=== PATIENT | female | born 1975 ===

== ENCOUNTER 2017-01-15 19:29 | Emergency (ER) | payer MEDICAID ==
[2017-01-15] MEDS ORDERED: DIPHENHYDRAMINE HCL 25 MG CAPSULE PO ONE (20:49)
[2017-01-15] MEDS ORDERED: FAMOTIDINE 20 MG TABLET PO ONE (20:49)
[2017-01-15] MEDS ORDERED: PREDNISONE 20 MG TABLET PO ONE (20:49)
[2017-01-15 20:51] VITALS: BP 144/79
--- NOTE | 2017-01-15 21:02 | ER Document Report ---
ED Medical Screen (RME) - General Stated Complaint: POSSIBLE RASH Mode of Arrival: Ambulatory Information source: Patient Notes: 41 y/o F presents to ED c/o itchy rash that began this morning. States unknown cause. Rash is to bilateral upper and lower extremities and trunk. Denies fever , recent illness, difficulty breathing or swallowing. I have greeted and performed a rapid initial assessment of this patient. A comprehensive ED assessment and evaluation of the patient, analysis of test results and completion of the medical decision making process will be conducted by additional ED providers. TRAVEL OUTSIDE OF THE [place] IN LAST 30 DAYS: No - Related Data Allergies/Adverse Reactions: Penicillins Allergy (Verified 01/15/17 20:51) Past Medical History - Social History Chew tobacco use (# tins/day): No Frequency of alcohol use: Occasional Drug Abuse: None Renal/ Medical History: Denies: Hx Peritoneal Dialysis Physical Exam - Vital signs Vitals: Temp Pulse Resp BP Pulse Ox 98.4 F 106 H 14 144/79 H 98 01/15/17 20:47 01/15/17 20:47 01/15/17 20:47 01/15/17 20:47 01/15/17 20:47 - General General appearance: Appears well, Alert In distress: None - Respiratory Respiratory status: No respiratory distress Course - Vital Signs Vital signs: Temp Pulse Resp BP Pulse Ox 98.4 F 106 H 14 144/79 H 98 01/15/17 20:47 01/15/17 20:47 01/15/17 20:47 01/15/17 20:47 01/15/17 20:47
== END 2017-01-15 22:20 | disposition left against medical advice (07) ==
LOC: ER 19:29
DX: R21 Rash and other nonspecific skin eruption (principal); L29.9 Pruritus, unspecified; Z88.0 Allergy status to penicillin; Z53.20 Procedure and treatment not carried out because of patient's decision for unspecified reasons
CPT/HCPCS: 99281